=== PATIENT | female | born 1955 ===

== ENCOUNTER 2016-09-09 08:40 | Day surgery (SDC) | payer OTHER ==
[2016-09-09 09:18] VITALS: BMI 26.6
[2016-09-09] MEDS ORDERED: Propofol 10 mg/ml Inj (20 ML) ONE (10:37)
[2016-09-09] MEDS ORDERED: Lactated Ringer's 1,000 ML IV SCH (11:00)
[2016-09-09 11:30] VITALS: RESP 18
[2016-09-09 12:57] VITALS: BP 109/63; PULSE 59; TEMP 97.1; O2SAT 97
== END 2016-09-09 12:10 | disposition home or self-care (01) ==
LOC: C.ENDO 08:40
PROVIDERS: ATTEND Internal Medicine Gastroenterology
DX: Z12.11 Encounter for screening for malignant neoplasm of colon (principal); D12.3 Benign neoplasm of transverse colon; K57.30 Diverticulosis of large intestine without perforation or abscess without bleeding; K64.8 Other hemorrhoids

== ENCOUNTER 2017-07-18 11:35 | Day surgery (SDC) | payer OTHER ==
[2017-07-17 09:16] VITALS: BMI 30.4
[2017-07-18] MEDS ORDERED: Clindamycin 600mg/50ml NS 0 MG/0 ML BAG IVPB ONE (13:37)
[2017-07-18] MEDS ORDERED: Lidocaine 1% Inj (20ml) ONE (13:38)
[2017-07-18] MEDS ORDERED: Bupivacaine HCl 0.25% PF (10 ml) Inj ONE (13:38)
[2017-07-18] MEDS ORDERED: Lactated Ringer's 1,000 ML IV ONE (13:45)
[2017-07-18] MEDS ORDERED: Propofol 10 mg/ml Inj (20 ML) ONE (13:45)
[2017-07-18] MEDS ORDERED: Midazolam 2 MG/2 ML VIAL ONE (13:45)
[2017-07-18] MEDS ORDERED: Bupivacaine HCl 0.5% PF (10 ml) Inj ONE (13:53)
[2017-07-18] MEDS ORDERED: Lidocaine Hydrochloride 5 ML INJ ONE (13:58)
--- NOTE | 2017-07-18 14:27 | PCM.SURG1 ---
Surgeon's Initial Post Op Note - Surgeon's Notes Surgeon: Sadi Artist Relationship Manager: [id number] Type of Anesthesia: IV Sedation, Local Pre-Operative Diagnosis: Hx of breast cancer, S/P remission Operative Findings: see op note Post-Operative Diagnosis: Hx of breast cancer, S/P remission Operation Performed: Removal of lifeport Specimen/Specimens Removed: lifeport Estimated Blood Loss: EBL {In ML}: 10 Blood Products Given: N/A Drains Used: No Drains Post-Op Condition: Good Date of Surgery/Procedure: 07/18/17 Time of Surgery/Procedure: 14:05
[2017-07-18] MEDS ORDERED: Oxycodone/Acetaminophen 5/325 mg Tab PO ONE (14:32)
[2017-07-18 15:42] VITALS: RESP 16
--- NOTE | 2017-07-18 16:01 | OP ---
PROCEDURE DATE: 07/18/2017 PREOPERATIVE DIAGNOSES: History of breast cancer, status post chemotherapy. POSTOPERATIVE DIAGNOSES: History of breast cancer, status post chemotherapy. PROCEDURE: Removal of right subclavian Port-A-Cath. SURGEON: Nick Avitia MD. MANAGER BUSINESS MANAGEMENT: Dr. Singh. TYPE OF ANESTHESIA: Local with IV sedation. ANESTHESIA ADMINISTERED BY: Prince Shirley MD. DESCRIPTION OF OPERATION: With the patient in the supine position, having received IV sedation, the right upper chest was prepped and draped in usual sterile manner. The patient had a Port-A-Cath palpable overlying the right pectoral region and after infiltration of lidocaine and Marcaine, an incision was made at the insertion site and taken down to the hub of the port. The catheter was dissected free of the surrounding subcutaneous tissue and then with gentle traction, extracted from the vein and then using traction on the catheter, the port was removed from the subcutaneous pocket. The operative site was examined for hemostasis and closure was performed with running subcuticular suture of 4-0 Monocryl and Steri-Strips. Dry sterile dressing was applied. The patient tolerated the procedure well and transferred to recovery room in stable condition. Estimated blood loss for the procedure was 2 mL. Nick Avitia MD
[2017-07-18 17:03] VITALS: BP 127/79; PULSE 73; TEMP 97.4; O2SAT 96
== END 2017-07-18 16:19 | disposition home or self-care (01) ==
LOC: C.SDS 11:35
PROVIDERS: ATTEND Specialist
DX: Z45.2 Encounter for adjustment and management of vascular access device (principal); Z92.21 Personal history of antineoplastic chemotherapy; Z85.3 Personal history of malignant neoplasm of breast
CPT/HCPCS: 36590; J2250; J2704; J3010; J7120

== ENCOUNTER 2017-07-30 12:17 | Emergency (ER) | payer OTHER ==
[2017-07-30 12:18] VITALS: BMI 30.4
[2017-07-30] MEDS ORDERED: DiphenhydrAMINE 50 mg/ml Inj IVP STA (13:55)
[2017-07-30 13:59] LABS: HEMOGLOBIN 12.5 g/dL (11.0-16.0); MEAN CORPUSCULAR HEMOGLOBIN 29.2 pg (27.0-31.0); MEAN CORPUSCULAR HGB CONC 34.8 g/dL (33.0-37.0); MEAN PLATELET VOLUME 9.8 fL (7.2-11.7); RBC 4.28 Mil/uL (3.80-5.20); RED CELL DISTRIBUTION WIDTH 14.4 % (11.5-14.5); WHITE BLOOD COUNT 8.1 K/uL (4.8-10.8)
[2017-07-30] MEDS ORDERED: DiphenhydrAMINE 50 mg/ml Inj ONE (14:01)
[2017-07-30 14:17] LABS: ALBUMIN 3.7 g/dL (3.5-5.0); ALT/SGPT 29 U/L (9-52); AST/SGOT 27 U/L (14-36); BLOOD UREA NITROGEN 9 mg/dL (7-17); CALCIUM 8.7 mg/dl (8.6-10.4); GFR AFRICAN-AMERICAN > 60; GFR NON-AFRICAN AMERICAN > 60
--- NOTE | 2017-07-30 14:33 | C.PDOC ---
History Of Present Illness 61-year-old female, PMHx includes B/L breast CA, presents to the emergency department c/o rash. Patient had immunoglobulin infusion order by Dr Cruz two weeks ago, patient states she started to develop skin dryness and rash to B/L palms, and recently noted scattered rash to left upper back, bilateral lower extremities and soles. She denies fever, throat tightness, wheezing, chest pain or shortness of breath. No other complaints at this time. Time Seen by Provider: 07/30/17 13:19 Chief Complaint (Nursing): Abnormal Skin Integrity History Per: Patient History/Exam Limitations: no limitations Onset/Duration Of Symptoms: Days Current Symptoms Are (Timing): Still Present Past Medical History Reviewed: Historical Data, Nursing Documentation, Vital Signs Vital Signs: Last Vital Signs Temp 98.3 F 07/30/17 12:48 Pulse 77 07/30/17 12:48 Resp 16 07/30/17 12:48 BP 146/93 H 07/30/17 12:48 Pulse Ox 99 07/30/17 14:37 - Medical History PMH: Anxiety, Depression, HTN, Hypercholesterolemia Surgical History: Appendectomy - [facility] Procedures CONTROL BLEEDING IN GENITOURINARY TRACT, OPEN APPROACH (07/11/15) Family History: States: No Known Family Hx - Social History Hx Alcohol Use: Yes Hx Substance Use: No Review Of Systems Constitutional: Negative for: Fever ENT: Negative for: Throat Swelling Cardiovascular: Negative for: Chest Pain Respiratory: Negative for: Shortness of Breath Gastrointestinal: Negative for: Nausea, Vomiting Skin: Positive for: Rash Neurological: Negative for: Weakness, Headache, Dizziness Physical Exam - Physical Exam Appears: Non-toxic, No Acute Distress Skin: Rash (thickened, rough skin to B/L palms, with scattered macular erythematous rash. B/L lower extremities and soles with macular erythematous rash) Head: Normacephalic Eye(s): bilateral: PERRL Nose: No Flaring, No Discharge Oral Mucosa: Moist, No Drooling Tongue: No Swelling Lips: No Swelling Throat: No Erythema, No Drooling, Other (uvula midline, no edema.) Neck: Supple Cardiovascular: Rhythm Regular Respiratory: No Decreased Breath Sounds, No Accessory Muscle Use, No Stridor, No Wheezing Gastrointestinal/Abdominal: Soft, No Tenderness Extremity: Normal ROM, No Pedal Edema, No Deformity Neurological/Psych: Oriented x3, Normal Speech ED Course And Treatment - Laboratory Results Result Diagrams: 07/30/17 13:56 07/30/17 13:56 Lab Interpretation: Normal O2 Sat by Pulse Oximetry: 99 (RA) Pulse Ox Interpretation: Normal Progress Note: On re-eval, pt is afebrile, hemodynamicaly stable. NOn-toxic. PulsEOx 99% ra. ENT:NO ACUTE FINDINGS. UVULA MIDLINE, NO EDEMA. neck: Supple. Lungs: CTA B/L, BS equal B/L. Abd: benign. Case dsicussed with Little Mccarthy ( ordering infusion physician) and case dsicussed. recommend tx with steroids, discharge with outpt f/u. Pt received tx in ED. Blood work review and appears baseline. results review and discussed with pt. Pt has clinical findings c/w rash after Gamunex inf. Pt advised on course of ds. ref. to f/u with PMD, in 2-3 days for re-eval,. return to ED if any worsening or new changes. Disposition Counseled Patient/Family Regarding: Diagnosis, Need For Followup, Rx Given - Disposition Referrals: Phuong Estrada MD [Medical Doctor] - Disposition: HOME/ ROUTINE Disposition Time: 14:40 Condition: STABLE Additional Instructions: TAKE MEDICATION PRESCRIBED RECOMMEND TO RECONSIDER GAMMA-IMMUNOGLOBULIN INFUSION TO SIDE EFFECT FOLLOW UP WITH PMD, NEUROLOGY IN 2-3 DAYS FOR RE-EVALUATION. RETURN TO ED IF ANY WORSENING OR NEW CHANGES. Prescriptions: DiphenhydrAMINE [Benadryl] 25 mg PO BID #10 cap Famotidine [Pepcid] 20 mg PO BID #10 tab Prednisone [Deltasone] 40 mg PO DAILY #8 tablet Instructions: Allergies (ED) Forms: [employer] (Spanish) - Clinical Impression Clinical Impression: Medication reaction - Scribe Statement The provider has reviewed the documentation as recorded by the Scribe (Magali Gagnon) All medical record entries made by the Scribe were at my direction and personally dictated by me. I have reviewed the chart and agree that the record accurately reflects my personal performance of the history, physical exam, medical decision making, and the department course for this patient. I have also personally directed, reviewed, and agree with the discharge instructions and disposition.
[2017-07-30 15:25] VITALS: BP 163/106; PULSE 62; RESP 18; TEMP 98.1
[2017-07-30 15:26] VITALS: O2SAT 99
== END 2017-07-30 15:30 | disposition home or self-care (01) ==
LOC: C.ER 12:17
DX: L27.0 Generalized skin eruption due to drugs and medicaments taken internally (principal); T50.995A Adverse effect of other drugs, medicaments and biological substances, initial encounter; Y92.89 Other specified places as the place of occurrence of the external cause
CPT/HCPCS: 80053; 85027; 96374; 96375; 99283; J1200; J2930

== ENCOUNTER 2017-12-11 14:46 | Emergency (ER) | payer MEDICARE ==
[2017-12-11 14:46] VITALS: BMI 30.4
--- NOTE | 2017-12-11 16:15 | RAD ---
PROCEDURE: Right Foot Radiographs. HISTORY: r/o fx COMPARISON: None. FINDINGS: BONES: No acute fracture. JOINTS: Mild joint space narrowing. SOFT TISSUES: Normal. OTHER FINDINGS: Achilles enthesophyte. Trace plantar calcaneal spur. IMPRESSION: No demonstrated fracture or dislocation.
[2017-12-11 16:55] VITALS: BP 126/82; PULSE 76; RESP 18; TEMP 98; O2SAT 97
--- NOTE | 2017-12-11 17:56 | C.PDOC ---
History Of Present Illness 62 y/o female presents to the ER complaining of right foot pain which has been present since yesterday. Patient states that she missed a step and landed on the outside portion of her foot. Patient reports that he is able to ambulate with a limp. She reports that she decided to come to the ER due to her hx of diabetic neuropathy. Chief Complaint (Nursing): Lower Extremity Problem/Injury History Per: Patient History/Exam Limitations: no limitations Onset/Duration Of Symptoms: Days Current Symptoms Are (Timing): Still Present Severity: Moderate Past Medical History Reviewed: Historical Data, Nursing Documentation, Vital Signs Vital Signs: Last Vital Signs Temp 98 F 12/11/17 16:53 Pulse 76 12/11/17 16:53 Resp 18 12/11/17 16:53 BP 126/82 12/11/17 16:53 Pulse Ox 97 12/11/17 18:02 - Medical History PMH: Anxiety, Depression, Diabetes, HTN, Hypercholesterolemia Denies: Chronic Kidney Disease Surgical History: Appendectomy - [facility] Procedures CONTROL BLEEDING IN GENITOURINARY TRACT, OPEN APPROACH (07/11/15) Family History: States: No Known Family Hx - Social History Hx Alcohol Use: Yes Hx Substance Use: No Review Of Systems Except As Marked, All Systems Reviewed And Found Negative. Musculoskeletal: Positive for: Foot Pain (right foot pain) Neurological: Negative for: Weakness, Numbness Physical Exam - Physical Exam Appears: Non-toxic, No Acute Distress Skin: Normal Color, Warm, Dry Head: Atraumatic, Normacephalic Eye(s): bilateral: Normal Inspection Nose: Normal Oral Mucosa: Moist Neck: Supple Chest: Symmetrical Cardiovascular: Rhythm Regular Respiratory: Normal Breath Sounds, No Rales, No Rhonchi, No Wheezing Extremity: Normal ROM, No Tenderness, No Swelling Neurological/Psych: Oriented x3, Normal Speech Gait: Steady ED Course And Treatment O2 Sat by Pulse Oximetry: 97 (RA) Pulse Ox Interpretation: Normal - Other Rad X-Ray- Right Foot X-Ray: Viewed By Me, Read By Radiologist Interpretation: PROCEDURE: Right Foot Radiographs. HISTORY: r/o fx. COMPARISON: None. FINDINGS: BONES: No acute fracture. JOINTS: Mild joint space narrowing. SOFT TISSUES: Normal. OTHER FINDINGS: Achilles enthesophyte. Trace plantar calcaneal spur. IMPRESSION: No demonstrated fracture or dislocation. Medical Decision Making Medical Decision Making: Plan: -- X- Ray- Right Foot Updates: X-Ray- Right Foot is negative for fracture. Patient has been discharged and instructed to follow up with PMD in 2-3 days. Disposition - Disposition Referrals: Stacy Brice, [Non-Staff] - Disposition: HOME/ ROUTINE Disposition Time: 16:00 Condition: GOOD Additional Instructions: HALI DONIS, thank you for letting us take care of you today. Your provider was Carlton Niño DO and you were treated for RT FOOT PAIN. The emergency medical care you received today was directed at your acute symptoms. If you were prescribed any medication, please fill it and take as directed. It may take several days for your symptoms to resolve. Return to the Emergency Department if your symptoms worsen, do not improve, or if you have any other problems. Please contact your doctor or call one of the physicians/clinics you have been referred to that are listed on the Patient Visit Information form that is included in your discharge packet. Bring any paperwork you were given at discharge with you along with any medications you are taking to your follow up visit. Our treatment cannot replace ongoing medical care by a primary care provider outside of the emergency department. Thank you for allowing the [facility] team to be part of your care today. Follow up with your primary care doctor in 2-3 days for re-evaluation and further management. Prescriptions: Ibuprofen [Motrin] 600 mg PO Q6 PRN #20 tab PRN Reason: Pain, Moderate (4-7) Instructions: Foot Sprain (DC) Forms: [employer] (Syriac) - Clinical Impression Clinical Impression: Foot pain - Scribe Statement The provider has reviewed the documentation as recorded by the Ne Dickey Provider Attestation: All medical record entries made by the Nadeenibarthur were at my direction and personally dictated by me. I have reviewed the chart and agree that the record accurately reflects my personal performance of the history, physical exam, medical decision making, and the department course for this patient. I have also personally directed, reviewed, and agree with the discharge instructions and disposition.
== END 2017-12-11 16:58 | disposition home or self-care (01) ==
LOC: C.ER 14:46
DX: M79.671 Pain in right foot (principal)

== ENCOUNTER 2018-05-13 15:52 | Emergency (ER) | payer MEDICARE, OTHER ==
[2018-05-13 15:53] VITALS: BMI 30.4
[2018-05-13 16:04] VITALS: RESP 18; O2SAT 98
[2018-05-13 16:24] LABS: SQUAMOUS EPITHIAL < 1 /hpf (0-5); URINE BILIRUBIN NEGATIVE (NEGATIVE); URINE CLARITY Clear (Clear); URINE COLOR Straw (YELLOW); URINE GLUCOSE (UA) NORMAL (Normal); URINE LEUKOCYTE ESTERASE NEG Leu/uL (Negative); URINE PROTEIN NEGATIVE (NEGATIVE); URINE UROBILINOGEN NORMAL mg/dL (0.2-1.0)
--- NOTE | 2018-05-13 16:26 | C.PDOC ---
History Of Present Illness 62 y/o female pt presents to the ER complaining of abdominal discomfort since yesterday. Sx appeared after a day of taking Cipro from her PMD. Associated sx includes generalized spasm and muscle cramps of the back of the neck, hand and abdominal wall. Patient takes Lyrica for neuropathy daily. Pt reports she also received an US from her PMD. US results showed a "kidney stone" but pt is not sure where it is located. Pt denies swelling, erythema, fever chills and rash. Patient is also s/p right breast biopsy last week. Time Seen by Provider: 05/13/18 16:12 Chief Complaint (Nursing): Medical Clearance History Per: Patient History/Exam Limitations: no limitations Onset/Duration Of Symptoms: Days (x1) Current Symptoms Are (Timing): Still Present Past Medical History Reviewed: Historical Data, Nursing Documentation, Vital Signs Vital Signs: Last Vital Signs Temp 97.7 F 05/13/18 15:56 Pulse 111 H 05/13/18 15:56 Resp 18 05/13/18 15:56 BP 134/88 05/13/18 15:56 Pulse Ox 98 05/13/18 15:56 - Medical History PMH: Anxiety, Depression, Diabetes, HTN, Hypercholesterolemia Surgical History: Appendectomy - [facility] Procedures CONTROL BLEEDING IN GENITOURINARY TRACT, OPEN APPROACH (07/11/15) Family History: States: No Known Family Hx - Social History Hx Alcohol Use: Yes Hx Substance Use: No Review Of Systems Constitutional: Positive for: Other (muscle cramps and generalized spasm in back of neck, hand and abdominal wall. ). Negative for: Fever, Chills Gastrointestinal: Positive for: Abdominal Pain (discomfort) Musculoskeletal: Negative for: Other (erythema and swelling in neck, hand or abdomen) Skin: Negative for: Rash Physical Exam - Physical Exam Appears: Well, Non-toxic, No Acute Distress Skin: Normal Color, Warm, Dry Head: Normacephalic Eye(s): bilateral: Normal Inspection, PERRL, EOMI Nose: Normal Oral Mucosa: Moist Throat: Normal Neck: Normal ROM, Trachea Midline, No Midline Cervical Tenderness, No Paracervical Tenderness, Supple Chest: Symmetrical, No Deformity, Other (Surgical wound right breast clean and healing well. No erythema, tenderness or drainage.) Cardiovascular: Rhythm Regular Respiratory: Normal Breath Sounds Gastrointestinal/Abdominal: Soft, No Tenderness Back: No CVA Tenderness Extremity: Normal ROM (x4), No Tenderness, No Swelling, No Other (erythema ) Neurological/Psych: Oriented x3, Normal Speech, Normal Cognition Gait: Steady ED Course And Treatment - Laboratory Results Result Diagrams: 05/13/18 16:30 05/13/18 16:30 Lab Interpretation: Abnormal (WBC 17.6 with normal diff.) O2 Sat by Pulse Oximetry: 98 (RA) Pulse Ox Interpretation: Normal Reevaluation Time: 17:56 Reassessment Condition: Unchanged (Still c/o pain) - Physician Consult Information Time Consulting Physician Contacted: 18:00 Physician Contacted: Vee Estrada Outcome Of Conversation: Patient well known to him. States that her WBC is always "on the high side". Will treat with pain medication and he will follow up in the office. Medical Decision Making Medical Decision Making: Impression: generalized spasm and muscle cramps Plans: -- chem lab -- blood work -- UA Disposition Counseled Patient/Family Regarding: Studies Performed, Diagnosis, Need For Followup, Rx Given - Disposition Referrals: Vee Estrada MD [Staff Provider] - Disposition: HOME/ ROUTINE Disposition Time: 18:01 Condition: STABLE Prescriptions: Tramadol HCl [Ultram] 50 mg PO QID PRN #14 tab PRN Reason: Pain, Severe (8-10) Instructions: Muscle and Bone Pain (DC) Forms: [facility] (Tuvaluan) - Clinical Impression Clinical Impression: Musculoskeletal pain - Scribe Statement The provider has reviewed the documentation as recorded by the Scribe Monk Do Provider Attestation: All medical record entries made by the Scribe were at my direction and personally dictated by me. I have reviewed the chart and agree that the record accurately reflects my personal performance of the history, physical exam, medical decision making, and the department course for this patient. I have also personally directed, reviewed, and agree with the discharge instructions and disposition.
[2018-05-13 16:35] LABS: BASO # 0.2 K/uL (0.0-0.2); BASO % 1.1 % (0.0-2.0); EOS # 0.5 K/uL (0.0-0.7); EOS % 3.1 % (0.0-4.0); HEMOGLOBIN 13.5 g/dL (11.0-16.0); LYMPH # 3.2 K/uL (1.0-4.3); MEAN CELL VOLUME 86.4 fL (81.0-99.0); MEAN CORPUSCULAR HEMOGLOBIN 29.5 pg (27.0-31.0); MEAN CORPUSCULAR HGB CONC 34.2 g/dL (33.0-37.0); MEAN PLATELET VOLUME 10.2 fL (7.2-11.7); MONO # 1.5 K/uL (0.0-0.8); MONO % 8.6 % (0.0-10.0); NEUT # 12.2 K/uL (1.8-7.0); NEUT % 69.2 % (50.0-75.0); RBC 4.59 Mil/uL (3.80-5.20); RED CELL DISTRIBUTION WIDTH 14.9 % (11.5-14.5); WHITE BLOOD COUNT 17.6 K/uL (4.8-10.8)
[2018-05-13 16:35] LABS: URINE BLOOD TRACE (NEGATIVE)
[2018-05-13 17:01] LABS: ALB/GLOB RATIO 1.3 (1.0-2.1); ALBUMIN 4.6 g/dL (3.5-5.0); BLOOD UREA NITROGEN 17 mg/dL (7-17); CALCIUM 9.7 mg/dl (8.6-10.4); GFR NON-AFRICAN AMERICAN > 60
[2018-05-13 17:02] LABS: ALT/SGPT 23 U/L (9-52); AST/SGOT 26 U/L (14-36)
[2018-05-13 17:47] VITALS: BP 100/67; PULSE 91; TEMP 97.9
== END 2018-05-13 18:14 | disposition home or self-care (01) ==
LOC: C.ER 15:52
DX: M79.18 Myalgia, other site (principal); E11.9 Type 2 diabetes mellitus without complications; E78.00 Pure hypercholesterolemia, unspecified; I10 Essential (primary) hypertension

== ENCOUNTER 2018-10-21 10:39 | Emergency (ER) | payer MEDICARE, OTHER ==
[2018-10-21 10:39] VITALS: BMI 30.4
[2018-10-21 11:04] VITALS: RESP 18; TEMP 98.4; O2SAT 97
--- NOTE | 2018-10-21 11:25 | C.PDOC ---
History Of Present Illness Patient is a 63 year old female who presents to the ED c/o left foot pain with associated swelling that began this morning. She states she had been doing a lot of walking yesterday wearing boots she doesn't typically wear and woke up this morning noticing left foot pain. She rates it as an 8/10. Patient denies any trauma or weakness, but admits to numbness and tingling. Chief Complaint (Nursing): Lower Extremity Problem/Injury History Per: Patient History/Exam Limitations: no limitations Onset/Duration Of Symptoms: Hrs Current Symptoms Are (Timing): Still Present Pain Scale Rating Of: 8 Recent travel outside of the [place]: No Additional History Per: Patient Past Medical History Reviewed: Historical Data, Nursing Documentation, Vital Signs Vital Signs: Last Vital Signs Temp 98.4 F 10/21/18 10:59 Pulse 92 H 10/21/18 10:59 Resp 18 10/21/18 10:59 BP 147/91 H 10/21/18 10:59 Pulse Ox 97 10/21/18 10:59 Primary Care Provider: Vee Estrada - Medical History PMH: Anxiety, Depression, Diabetes, HTN, Hypercholesterolemia Denies: Chronic Kidney Disease Surgical History: Appendectomy - [facility] Procedures CONTROL BLEEDING IN GENITOURINARY TRACT, OPEN APPROACH (07/11/15) Family History: States: No Known Family Hx - Social History Hx Alcohol Use: Yes Hx Substance Use: No Review Of Systems Musculoskeletal: Positive for: Foot Pain (left foot with associated swelling) Neurological: Positive for: Numbness. Negative for: Weakness Physical Exam - Physical Exam Appears: Non-toxic, No Acute Distress Skin: Warm, Dry Head: Atraumatic, Normacephalic Oral Mucosa: Moist Neck: Normal ROM, Supple Chest: Symmetrical, No Deformity Cardiovascular: Rhythm Regular Respiratory: Normal Breath Sounds, No Accessory Muscle Use Extremity: Tenderness (tender to touch left foot), Capillary Refill (less than 2 seconds), Other (left foot near great toe erythema, slight edema, no ecchymosis ) Pulses: Left Dorsalis Pedis: Normal, Right Dorsalis Pedis: Normal Neurological/Psych: Oriented x3 ED Course And Treatment O2 Sat by Pulse Oximetry: 97 (on RA) Pulse Ox Interpretation: Normal - Other Rad Xray Lft Foot X-Ray: Viewed By Me, Read By Radiologist Interpretation: PROCEDURE: Radiographs of the left great toe. TECHNIQUE:: AP radiograph of the left foot, with oblique and lateral view of the left great toe. 3 view obtained. COMPARISON: None available. FINDINGS: BONES: The 1st digit appears unremarkable without acute displaced fracture identified. Made of the visualized osseous structures appear unremarkable. JOINTS: No dislocation. SOFT TISSUES: Mild soft tissue swelling. No evidence radiopaque foreign body. OTHER FINDINGS: None. IMPRESSION: Mild soft tissue swelling. No acute displaced fracture. Medical Decision Making Medical Decision Making: Plan: Toradol 30mg PO Xray Lft Foot Impression: suspicious for Gout Use meds as directed follow up with PMD to check uric levels rest, ice, compression, and elevation return to the ED if symptoms worsen Patient verbalizes understanding and is in agreement with plan. Patient is stable for discharge. Disposition Counseled Patient/Family Regarding: Studies Performed, Diagnosis, Need For Followup, Rx Given - Disposition Referrals: Vee Estrada MD [Staff Provider] - Disposition: HOME/ ROUTINE Disposition Time: 12:39 Condition: STABLE Additional Instructions: Use meds as directed follow up with PMD to check uric levels rest, ice, compression, and elevation return to the ED if symptoms worsen Prescriptions: Indomethacin [Indocin] 50 mg PO TID 5 Days #15 cap Methylprednisolone [Medrol Dose Pack (21 tabs)] 4 mg PO DAILY #21 mg Instructions: Gout (DC) Forms: [facility] (Malagasy) - Clinical Impression Clinical Impression: Left foot pain - PA / PLUM[employer] P[employer]TING / Resident Statement MD/DO has examined the patient and agrees with the treatment plan. - Scribe Statement The provider has reviewed the documentation as recorded by the Ne Hopson All medical record entries made by the Nadeenibarthur were at my direction and personally dictated by me. I have reviewed the chart and agree that the record accurately reflects my personal performance of the history, physical exam, medical decision making, and the department course for this patient. I have also personally directed, reviewed, and agree with the discharge instructions and disposition.
--- NOTE | 2018-10-21 12:41 | RAD ---
PROCEDURE: Radiographs of the left great toe. TECHNIQUE:: AP radiograph of the left foot, with oblique and lateral view of the left great toe. 3 view obtained. COMPARISON: None available. FINDINGS: BONES: The 1st digit appears unremarkable without acute displaced fracture identified. Made of the visualized osseous structures appear unremarkable. JOINTS: No dislocation. SOFT TISSUES: Mild soft tissue swelling. No evidence radiopaque foreign body. OTHER FINDINGS: None. IMPRESSION: Mild soft tissue swelling. No acute displaced fracture.
[2018-10-21 12:55] VITALS: BP 136/92; PULSE 83
== END 2018-10-21 12:54 | disposition home or self-care (01) ==
LOC: C.ER 10:39
DX: M79.672 Pain in left foot (principal)
CPT/HCPCS: 73660; 96372; 99285; J1885